=== PATIENT | female | born 1955 | race Caucasian/White ===

== ENCOUNTER → 2018-11-08 | Outpatient (CLI) | payer OTHER ==
--- NOTE | 2018-11-08 16:08 | PCVCIMAG ---
APPROVED REPORT Laterality: Bilateral Indications Bruit Risk Factors Hypertension: Doppler Spectral Velocity Analysis PSV / EDVPSV / EDV ECA (R) 102 / 21 cm/sECA (L) 94 / 19 cm/s dICA (R) 70 / 29 cm/sdICA (L) 58 / 25 cm/s Ryan (R) 78 / 19 cm/smICA (L) 69 / 26 cm/s pICA (R) 88 / 18 cm/spICA (L) 77 / 23 cm/s Bulb (R) 52 / 15 cm/sBulb (L) 74 / 21 cm/s dCCA (R) 92 / 28 cm/sdCCA (L) 78 / 23 cm/s mCCA (R) 68 / 23 cm/smCCA (L) 98 / 29 cm/s Vert (R) 31 / 9 cm/sVert (L) 48 / 15 cm/s ICA/CCA 0.96ICA/CCA 0.99 Basic Measurements Blood Pressure: Pulses: Right Left RightLeft Brachial(Sitting) 126/17uaZh321/78mmHgTemporal Real Time B-Mode Imaging Vert. (R)AntegradeVert. (L)Antegrade Findings The right carotid bulb has minimal plaque. The right proximal internal carotid artery shows no significant stenosis. The right common carotid artery shows no significant stenosis. The right external carotid artery shows no significant stenosis. The left carotid bulb has minimal plaque. The left proximal internal carotid artery shows no significant stenosis. The left common carotid artery shows no significant stenosis. The left external carotid artery shows no significant stenosis. Conclusion 1. Minimal bilateral plaquing without significant stenosis. 2. Antegrade vertebral flow.
--- NOTE | 2018-11-08 16:10 | PCVCIMAG ---
APPROVED REPORT Study performed: 11/08/2018 14:48:58 Exam: Stress Echocardiogram Indication: Hyperlipidemia, , Hypertension Patient Location: Echo lab Stress Nurse: Claudia Eason RN Status: routine Ht: 5 ft 3 in HR: 68 bpm BP: 120/78 mmHg Rhythm: NSR Medical History Medical History: Hyperlipidemia, HTN, Elevated calcium score Procedure The patient underwent an Exercise Stress Test using the [facility]am[facility] Protocol. Blood pressure, heart rate, and EKG were monitored. An Echocardiogram was performed by senior quality technician in four stages in quad fashion. At peak stress, four selected images were obtained and placed side by side with resting images for comparison. Stress Test Details Stress Test: Exercise stress testing was performed using a [facility]am[facility] protocol. HR Resting HR: 68 bpmMax Heart Rate (APMHR): 156 bpm Max HR Achieved: 131 bpmTarget HR (85% APMHR): 132 bpm % of APMHR: 83 Recovery HR: 82 bpm HR response to stress: Normal HR response to stress BP Resting BP: 120/78 mmHg Max BP: 154/72 mmHg Recovery BP: 112/78 mmHg BP response to stress: Normal blood pressure response to stress. ECG Resting ECG: Sinus Rhythm Stress ECG: Sinus Rhythm ST Change: Normal Maximum ST Deviation: 0 mm Arrhythmia: None Recovery ECG: Sinus Rhythm Recovery ST Change: Normal Recovery ST Deviation: 0 mm Recovery Arrhythmia: None Clinical Reason for Termination: Maximal effort Exercise duration: 9 min 14 sec Highest Stage Achieved: Stage 4: 4.2 mph at 16% grade. Exercise capacity: 10.80 METs Overall Exercise Capacity for Age: Normal Angina Score: None Stress ECG Conclusion Villegas Treadmill Score is 9.0 which is Low risk. Pre-Stress Echo The resting Echocardiogram showed normal left ventricular contractility with an estimated Ejection Fraction of about 55-60%. Normal wall motion in all segments on baseline images. Post-Stress Echo The stress Echocardiogram showed normal left ventricular contractility with an estimated Ejection Fraction of about 60-65%. Normal augmentation of wall motion in all segments on post stress images. Clinical No clinical or ECG evidence for ischemia. Conclusion Clinical Response: Non-ischemic Exercise Capacity: Average Stress ECG Response: Non-ischemic Stress Echo Images: Non-ischemic The left ventricle is normal in size and wall thickness in both the rest and stress images. Normal stress echocardiogram with near maximal exercise stress. Other Information Study Quality: Technically Difficult <Conclusion> The left ventricle is normal in size and wall thickness in both the rest and stress images. Normal stress echocardiogram with near maximal exercise stress.
== END | disposition home or self-care (01) ==
LOC: PCVCIMAG 14:33
PROVIDERS: ATTEND Internal Medicine
DX: I65.23 Occlusion and stenosis of bilateral carotid arteries (principal); I10 Essential (primary) hypertension; E78.5 Hyperlipidemia, unspecified; R09.89 Other specified symptoms and signs involving the circulatory and respiratory systems; J45.40 Moderate persistent asthma, uncomplicated; E78.00 Pure hypercholesterolemia, unspecified; R93.1 Abnormal findings on diagnostic imaging of heart and coronary circulation
CPT/HCPCS: 93325; 93351; 93880